=== PATIENT | male | born 1950 | race Caucasian/White ===

== ENCOUNTER 2025-04-17 11:53 | Outpatient (CLI) | payer MEDICARE, OTHER | END 2025-04-17 11:54 | disposition home or self-care (01) | LOC: CSHMRI 11:53 | PROVIDERS: ATTEND Internal Medicine Hematology & Oncology | DX: C67.8 Malignant neoplasm of overlapping sites of bladder (principal) | CPT/HCPCS: 72197 ==

== ENCOUNTER 2025-05-15 13:59 | Outpatient (CLI) | payer MEDICARE, OTHER | END 2025-05-15 14:00 | disposition home or self-care (01) | LOC: CSHULT 13:59 | PROVIDERS: ATTEND Urology | DX: C67.8 Malignant neoplasm of overlapping sites of bladder (principal) | CPT/HCPCS: 76770 ==